=== PATIENT | female | born 1970 | race Caucasian/White ===

== ENCOUNTER 2020-12-21 11:50 | Outpatient (CLI) | payer BC, SELFPAY ==
--- NOTE | ~2020-12-21 | XR_ITS ---
EXAMINATION: XR chest 2V DATE: 12/21/2020 12:13 INDICATION: COVID positive. Cough. TECHNIQUE: frontal and lateral views of the chest were obtained. COMPARISON: Chest radiograph dated 06/08/2016 FINDINGS: Patchy airspace opacities in the bilateral lower lung zones consistent with pneumonia. No pleural eff usion or pneumothorax. The cardiomediastinal silhouette is normal. Mild lower thoracic dextrocurvatur e with moderate thoracic spondylosis. IMPRESSION: 1. Patchy airspace opacities in the bilateral lower lung zones consistent with pneumonia. Reviewed, dictated and finalized at location B. GENERATION SPECIALIST
== END 2020-12-21 11:51 | disposition home or self-care (01) ==
LOC: ANHIMG 11:58
PROVIDERS: Family Provider Family Medicine; PCP Family Medicine; Visit Provider Physician Assistant
DX: U07.1 COVID-19 (principal); R91.8 Other nonspecific abnormal finding of lung field
CPT/HCPCS: 71046

== ENCOUNTER → 2023-01-05 10:02 | Outpatient (CLI) | payer BC, SELFPAY ==
--- NOTE | ~2023-01-05 | DEXA_ITS ---
Bone Density Report Name: WILLIS MAXWELL Age: 52 Sex: Female Ethnicity: White Date of : 1970 Indication: postmenopausal; screening for osteoporosis; hysterectomy; Referring Provider: Jeff, Nathalie Study: Bone densitometry was performed. Exam Date: January 05, 2023 Accession number: [id number] Bone Density: Region BMD T-score Z-score Classification AP Spine (L1-L4) 1.015 -0.3 0.8 Normal Femoral Neck (Left) 0.818 -0.3 0.8 Normal Total Hip (Left) 0.944 0.0 0.7 Normal Femoral Neck (Right) 0.804 -0.4 0.6 Normal Total Hip (Right) 0.941 0.0 0.7 Normal Total Hip Mean 0.943 0.0 0.7 Normal World Health Organization criteria for BMD impression classify patients as: Normal (T-score at or above -1.0), Osteopenia (T-score between -1.0 and -2.5), or Osteoporosis (T-score at or below -2.5). 10-year Fracture Risk: FRAX not reported because: All T-scores for Spine Total, Hip Total, Femoral Neck at or above -1.0 Previous Exams: Region Exam Age BMD T-score BMD Change BMD Change Date g/cm2 vs Baseline vs Previous AP Spine(L1-L4) 01/05/2023 52 1.015 -0.3 0.009 0.009 05/23/2019 49 1.006 -0.4 Total Hip(Left) 01/05/2023 52 0.944 0.0 -0.004 -0.004 05/23/2019 49 0.948 0.1 Total Hip(Right) 01/05/2023 52 0.941 0.0 0.008 0.008 05/23/2019 49 0.933 -0.1 *Denotes significance at 95% confidence level, LSC for AP Spine = 0.022 g/cm2, LSC for Total Hip = 0.027 g/cm2 Clinical Information Provided by Patient: Has used the following medications: HRT (i.e. estrogen/hormone therapy), Vitamin D Has the following medical conditions: Hysterectomy Patient maximum height was 62.5 Menopause Age: 46 No regular weight bearing exercise Drinks caffeinated beverages Onset of menses at age 10 Number of children 2 Impression: The patient has normal bone mass. No significant bone loss was observed. Discussion: BONE DENSITY IS ABOVE THE MINIMUM DESIRABLE LEVEL AT ALL SKELETAL SITES TESTED. This patient?s bone mineral density is above the minimum desirable level (T-score -1.0 or better) at all sites measured. The patient should follow a healthful lifestyle (good nutrition with adequate calcium and vitamin D, and appropriate weight-bearing exercise). Follow-Up: Consider repeating this study in 5 years or sooner if there is some new clinical indication. Reported by: OMAR on
== END ==
PROVIDERS: PCP Family Medicine; Visit Provider Nurse Practitioner
DX: Z13.820 Encounter for screening for osteoporosis (principal)
CPT/HCPCS: 77080

== ENCOUNTER 2023-11-08 00:20 | Day surgery (SDC) | payer BC, OTHER, SELFPAY ==
[2023-10-30 11:58] VITALS: BMI 22.8
--- NOTE | 2023-11-07 15:20 | PM.HPGS ---
History of Present Illness History of Present Illness Consent: Risks, benefits, and alternatives have been discussed and questions answered. Patient agrees to proceed with procedure. Chief complaint: hx colon polyps Narrative: Jamila Craig is a 53 year old female referred for colon cancer screening. A polyp was removed at the time of her last colonoscopy 5 years ago. Review of Systems Review of Systems: All systems reviewed & are unremarkable except as noted in HPI and below PMFSH Past Medical History Medical History Acute non-recurrent sinusitis Bilateral otitis media Endometriosis ETD (eustachian tube dysfunction) Hypothyroidism (acquired) OAB (overactive bladder) Postmenopausal HRT (hormone replacement therapy) Family History Family History Father Family history of elevated blood lipids Family history of diabetes mellitus in first degree relative Patient's father is in good health Mother Patient's mother is in good health Sibling Patient's sister is in good health Social History Social History Social History: Smoking status: Never smoker Second hand tobacco smoke exposure: No Alcohol intake: current Drinks per week: 3 Alcohol use details: Socially Substance use: never Substance use type: does not use Lack of Transportation: No Lack of Food: Never True Current Housing: I Have Housing Concerned About Future Housing: No Difficulty Paying Gas/Electric Bills: No Difficulty Paying for Meds: No Currently Unemployed: YES Education: Decline to Answer Difficulty w/ Childcare or Family Care: No Living arrangements: other Additional living arrangements comments: with sp Occupation/Education: unemployed Gender identity (if verbalized by the patient): Female Sexual Orientation (if Verbalized by the Patient): Straight or Heterosexual Meds Home Medications and Allergies Home Medications Medication Instructions Recorded Confirmed Type estradiol 1 mg tablet 1 mg PO DAILY 01/19/21 11/08/23 History valacyclovir 500 mg tablet 500 mg PO DAILY 01/19/21 11/08/23 History cholecalciferol (vitamin D3) 1,250 1,250 mcg PO MONTHLY 04/07/23 11/08/23 History mcg (50,000 unit) capsule sumatriptan succinate 25 mg tablet See Rx Instructions PO .COMPLEX #7 10/23/23 11/08/23 Rx tabs levothyroxine 50 mcg tablet 75 mcg PO DAILY 10/24/23 11/08/23 History Allergies Allergy/AdvReac Type Severity Reaction Status Date / Time No Known Allergies Allergy Verified 11/08/23 13:48 Exam Resp: Auscultation: clear to auscultation bilaterally Cardio: Rate: regular rate Rhythm: regular rhythm GI: GI Palp: Yes Soft to palpation and No Tenderness to palpation present (GI) Assessment and Plan Assessment and plan (1) Colon cancer screening: Code(s): Z12.11 - Encounter for screening for malignant neoplasm of colon Status: Acute Assessment and Plan: Colonoscopy with possible biopsy or polypectomy or cautery or injection of substances.
[2023-11-08 13:51] VITALS: BP 115/88; PULSE 70; RESP 16; TEMP 36.1; O2SAT 99
--- NOTE | 2023-11-08 13:54 | WPDANESEPPF ---
Anes - Initial Pre Proc Eval Procedure: Operation Date: 11/08/23 15:00 Proposed Procedures p Colonoscopy - Juan Jose Billings MD Date/Time: 11/08/23 13:54 Surgeon: Juan Jose Billings MD Pre Op Diagnosis: hx colon polyps Patient Data Age: 53 Gender: F Height: 1.6 m Weight: 60.5 kg Last Vital Signs Temp 97.0 F L 11/08/23 13:51 Pulse 70 11/08/23 13:51 Resp 16 11/08/23 13:51 BP 115/88 11/08/23 13:51 Pulse Ox 99 11/08/23 13:51 O2 Del Method Room Air 11/08/23 13:51 Allergies Allergy/AdvReac Type Severity Reaction Status Date / Time No Known Allergies Allergy Verified 11/08/23 13:48 Home Medications Medication Instructions Recorded Confirmed Type estradiol 1 mg tablet 1 mg PO DAILY 01/19/21 11/08/23 History valacyclovir 500 mg tablet 500 mg PO DAILY 01/19/21 11/08/23 History cholecalciferol (vitamin D3) 1,250 1,250 mcg PO MONTHLY 04/07/23 11/08/23 History mcg (50,000 unit) capsule sumatriptan succinate 25 mg tablet See Rx Instructions PO .COMPLEX #7 10/23/23 11/08/23 Rx tabs levothyroxine 50 mcg tablet 75 mcg PO DAILY 10/24/23 11/08/23 History Patient hx anesthesia problems: none Family hx anesthesia problems: none Results Review: All pre-operative results and documents have been reviewed as part of the pre-operative evaluation. [facility] Past Medical History Medical History Acute non-recurrent sinusitis Bilateral otitis media Endometriosis ETD (eustachian tube dysfunction) Hypothyroidism (acquired) OAB (overactive bladder) Postmenopausal HRT (hormone replacement therapy) Family History Family History Father Family history of elevated blood lipids Family history of diabetes mellitus in first degree relative Patient's father is in good health Mother Patient's mother is in good health Sibling Patient's sister is in good health Social History Social History Social History: Smoking status: Never smoker Second hand tobacco smoke exposure: No Alcohol intake: current Drinks per week: 3 Alcohol use details: Socially Substance use: never Substance use type: does not use Lack of Transportation: No Lack of Food: Never True Current Housing: I Have Housing Concerned About Future Housing: No Difficulty Paying Gas/Electric Bills: No Difficulty Paying for Meds: No Currently Unemployed: YES Education: Decline to Answer Difficulty w/ Childcare or Family Care: No Living arrangements: other Additional living arrangements comments: with sp Occupation/Education: unemployed Gender identity (if verbalized by the patient): Female Sexual Orientation (if Verbalized by the Patient): Straight or Heterosexual Anes - Eval Final PreProcedure Day of Procedure 11/08/23 13:54 Patient weight: normal Heart: regular rate and rhythm Lungs: clear to auscultation Airway: Mallampati scale class II Neurological: alert and oriented Last oral intake: >/= 8 hours ASA classification: II Emergent: no Anesthetic plan: proceed Anesthesia type and monitoring: general GIVS and standard monitoring Results Review: All pre-operative results and documents have been reviewed as part of the pre-operative evaluation. Informed Consent: The patient's anesthetic plan and its attendant risks and benefits were discussed with the patient/family/POA. Questions were solicited and answers provided to the satisfaction of the patient/family/POA.
[2023-11-08] MEDS: LACTATED RINGERS 1,000 ML 150 ML IV CONT (13:58)
[2023-11-08 14:31] VITALS: BP 96/57; PULSE 82; RESP 20; O2SAT 100
[2023-11-08 14:41] VITALS: BP 102/61; PULSE 76; RESP 22; O2SAT 100
[2023-11-08 14:51] VITALS: BP 104/62; PULSE 80; RESP 20; O2SAT 100
== END 2023-11-08 15:02 | disposition home or self-care (01) ==
PROVIDERS: PCP Family Medicine; Visit Provider Internal Medicine Gastroenterology
PROC: 0DJD8ZZ Inspection of Lower Intestinal Tract, Via Natural or Artificial Opening Endoscopic (ICD-10-PCS; CPT 45378; principal; 2023-11-08 15:00)
DX: Z12.11 Encounter for screening for malignant neoplasm of colon (principal); K64.8 Other hemorrhoids; E03.9 Hypothyroidism, unspecified; Z86.010 Personal history of colon polyps
CPT/HCPCS: 45378; J2704; J7120

== ENCOUNTER 2024-11-14 16:03 | Outpatient (CLI) | payer OTHER, SELFPAY ==
[2024-11-14 17:13] LABS: Influenza A QL RT-PCR Negative (Negative); Influenza B QL RT-PCR Negative (Negative); RSV RNA, RT-PCR Negative (Negative); SARS-CoV-2 RNA PCR Positive (Negative)
== END 2024-11-14 16:04 | disposition home or self-care (01) ==
LOC: ANHLAB 16:04
PROVIDERS: PCP Family Medicine; Visit Provider Student in an Organized Health Care Education/Training Program
DX: R05.9 Cough, unspecified (principal)
CPT/HCPCS: 87637

== ENCOUNTER 2025-06-05 08:37 | Outpatient (CLI) | payer OTHER, SELFPAY ==
--- NOTE | ~2025-06-05 | DEXA_ITS ---
Bone Density Report Name: WILLIS MAXWELL Age: 55 Sex: Female Ethnicity: White Date of : 1970 Indication: postmenopausal; screening for osteoporosis; height loss; hysterectomy; Referring Provider: ADRIEL MOCTEZUMA Study: Bone densitometry was performed. Exam Date: June 05, 2025 Accession number: [id number] Bone Density: Region BMD T-score Z-score Classification AP Spine(L1-L4) 1.089 0.4 1.6 Normal Femoral Neck (Left) 0.810 -0.4 0.8 Normal Total Hip (Left) 0.899 -0.4 0.4 Normal Femoral Neck (Right) 0.775 -0.7 0.5 Normal Total Hip (Right) 0.892 -0.4 0.4 Normal Total Hip Mean 0.896 -0.4 0.4 Normal World Health Organization criteria for BMD impression classify patients as: Normal (T-score at or above -1.0), Osteopenia (T-score between -1.0 and -2.5), or Osteoporosis (T-score at or below -2.5). 10-year Fracture Risk: FRAX not reported because: All T-scores for Spine Total, Hip Total, Femoral Neck at or above -1.0 Previous Exams: -- Region Exam Age BMD T-score BMD Change BMD Change Date g/cm2 vs Baseline vs Previous -- AP Spine (L1-L4) 06/05/2025 55 1.089 0.4 8.3%* 7.3%* 01/05/2023 52 1.015 -0.3 0.9% 0.9% 05/23/2019 49 1.006 -0.4 Total Hip(Left) 06/05/2025 55 0.899 -0.4 -5.2%* -4.8%* 01/05/2023 52 0.944 0.0 -0.5% -0.5% 05/23/2019 49 0.948 0.1 Total Hip(Right) 06/05/2025 55 0.892 -0.4 -4.4%* -5.2%* 01/05/2023 52 0.941 0.0 0.9% 0.9% 05/23/2019 49 0.933 -0.1 -- *Denotes significance at 95% confidence level, LSC for AP Spine = 0.022 g/cm2, LSC for Total Hip = 0.027 g/cm2 Clinical Information Provided by Patient: Has used the following medications: Vitamin D Has the following medical conditions: Hysterectomy Patient maximum height was 63 Menopause Age: 46 Drinks caffeinated beverages Onset of menses at age 9 Number of children 2 Impression: The patient has normal bone mass. The BMD for the Total Hip(Left) decreased, changing by -4.8% since the last DXA exam. The BMD for the Total Hip(Right) decreased, changing by -5.2% since the last DXA exam. Discussion: BONE DENSITY IS ABOVE THE MINIMUM DESIRABLE LEVEL AT ALL SKELETAL SITES TESTED. This patient?s bone mineral density is above the minimum desirable level (T-score -1.0 or better) at all sites measured. The patient should follow a healthful lifestyle (good nutrition with adequate calcium and vitamin D, and appropriate weight-bearing exercise). Follow-Up: Consider repeating this study in 3 to 4 years to reassess this patient's status, or sooner if there is some new clinical indication. Reported by: LADONNA on 06/05/2025 9:00:00 AM. Reviewed, dictated and finalized at location A.
== END 2025-06-05 08:38 | disposition home or self-care (01) ==
LOC: MICIMG 08:38
PROVIDERS: PCP Family Medicine; Visit Provider Nurse Practitioner Adult Health
DX: Z13.820 Encounter for screening for osteoporosis (principal); Z78.0 Asymptomatic menopausal state
CPT/HCPCS: 77080